=== PATIENT | male | born 1975 | race Caucasian/White ===

== ENCOUNTER 2023-07-01 15:35 | Inpatient (IN) | payer BC ==
[2023-07-01] MEDS ORDERED: morphine CARPU-JECT 4 MG/1 ML DISP.SYRIN IVPUSH ONE (17:36)
[2023-07-01] MEDS ORDERED: morphine SULFATE 4 MG/ML VIAL ONE (17:46)
[2023-07-01 18:08] LABS: BASO % 0.4 % (0-2.0); HEMATOCRIT 44.3 % (35.4-49); HEMOGLOBIN 15.5 GM/dL (11.7-16.9); LYMPH % 4.3 % (8-40); MCH 30.9 pg (25.7-33.7); MCHC 34.9 g/dl (32.0-35.9); MEAN CELL VOLUME 88.5 fl (80-96); MONO % 4.5 % (3.8-10.2); NEUT % 90.8 % (42.8-82.8); RBC 5.01 M/mm3 (4.00-5.60); RDW 13.3 % (11.9-15.9); WHITE BLOOD COUNT 16.6 K/mm3 (4.0-10.0)
[2023-07-01 18:33] LABS: POTASSIUM 4.3 mmol/L (3.5-5.1)
[2023-07-01 18:35] LABS: CALCIUM 9.7 mg/dL (8.5-10.1)
[2023-07-01 18:36] LABS: BLOOD UREA NITROGEN 20.6 mg/dL (7-18)
[2023-07-01 18:38] LABS: MEAN PLT VOLUME 7.3 fl (7.5-11.1); PLATELET COUNT 347 10^3/uL (134-434)
[2023-07-01 18:39] LABS: CREATININE 1.3 mg/dL (0.55-1.3)
[2023-07-01 18:40] LABS: BILIRUBIN,TOTAL 0.4 mg/dL (0.2-1); TOT PROT 8.1 g/dl (6.4-8.2)
[2023-07-01] MEDS ORDERED: morphine CARPU-JECT 2 MG/1 ML DISP.SYRIN IVPUSH PRN (23:52)
[2023-07-02] MEDS ORDERED: morphine SULFATE 4 MG/ML VIAL ONE (00:19)
[2023-07-02] MEDS ORDERED: SODIUM CHLORIDE 1,000 ML IV SCH (01:00)
[2023-07-02 02:48] VITALS: BMI 31.4
[2023-07-02 03:58] LABS: HEMATOCRIT 40.1 % (35.4-49); HEMOGLOBIN 13.8 GM/dL (11.7-16.9); MCH 30.5 pg (25.7-33.7); MCHC 34.4 g/dl (32.0-35.9); MEAN CELL VOLUME 88.6 fl (80-96); MEAN PLT VOLUME 7.3 fl (7.5-11.1); PLATELET COUNT 309 10^3/uL (134-434); RBC 4.53 M/mm3 (4.00-5.60); RDW 13.2 % (11.9-15.9); WHITE BLOOD COUNT 11.4 K/mm3 (4.0-10.0)
[2023-07-02] MEDS: INSULIN SLIDING SCALE (NOVOLOG) 1 VIAL SQ SCH ×3 (06:01→18:17)
[2023-07-02 07:10] LABS: HEMATOCRIT 40.2 % (35.4-49); HEMOGLOBIN 13.5 GM/dL (11.7-16.9); MCH 30.4 pg (25.7-33.7); MCHC 33.6 g/dl (32.0-35.9); MEAN CELL VOLUME 90.4 fl (80-96); MEAN PLT VOLUME 7.4 fl (7.5-11.1); PLATELET COUNT 302 10^3/uL (134-434); RBC 4.45 M/mm3 (4.00-5.60); RDW 13.3 % (11.9-15.9); WHITE BLOOD COUNT 11.1 K/mm3 (4.0-10.0)
[2023-07-02 07:30] LABS: POTASSIUM 4.7 mmol/L (3.5-5.1)
[2023-07-02 07:32] LABS: CALCIUM 9.1 mg/dL (8.5-10.1)
[2023-07-02 07:33] LABS: ALBUMIN 3.6 g/dl (3.4-5.0); BLOOD UREA NITROGEN 20.8 mg/dL (7-18); MAGNESIUM 2.3 mg/dL (1.8-2.4)
[2023-07-02 07:36] LABS: CREATININE 0.8 mg/dL (0.55-1.3); PHOSPHOROUS 3.2 mg/dL (2.5-4.9)
[2023-07-02 07:38] LABS: BILIRUBIN,TOTAL 0.8 mg/dL (0.2-1); TOT PROT 7.4 g/dl (6.4-8.2)
[2023-07-02] MEDS ORDERED: LIDOCAINE 5% TOPICAL PATCH TP SCH (10:00)
[2023-07-02 11:53] VITALS: TEMP 98.3
[2023-07-02 14:22] VITALS: BP 138/85; PULSE 71; RESP 20
[2023-07-02] MEDS ORDERED: LIDOCAINE PATCH REMOVAL MC SCH (22:00)
== END 2023-07-02 18:52 | disposition home or self-care (01) | DRG 184 ==
LOC: JER 15:35 → JERBED 22:19 → J7W 07-02 02:34
PROVIDERS: ADMIT Internal Medicine; ATTEND Nurse Practitioner Family
DX: S22.42XA Multiple fractures of ribs, left side, initial encounter for closed fracture (principal); J90 Pleural effusion, not elsewhere classified; S27.321A Contusion of lung, unilateral, initial encounter; E66.9 Obesity, unspecified; Z68.31 Body mass index [BMI] 31.0-31.9, adult; R73.9 Hyperglycemia, unspecified; X99.8XXA Assault by other sharp object, initial encounter; Y92.096 Garden or yard of other non-institutional residence as the place of occurrence of the external cause
CPT/HCPCS: 36415; 71045-TC-FY; 71250-TC; 72170-TC-FY; 74176-TC; 80053; 82550; 82553; 82962; 83036; 83735; 84100; 84484; 85025; 85027; 93005; 93010; 99285-25